=== PATIENT | male | born 1985 | race American Indian/Alaskan Native ===

== ENCOUNTER → 2016-12-22 | Outpatient (CLI) | payer BC ==
[~2016-12-22] MED LIST: CEPH500C PO; HYDR1TAB PO; IOHEXOL 350 MG/ML 150 ML (OMNIPAQUE 350) VIAL IV ONE; LISI5TAB PO; NS 100 ML (IVPB) BAG IV ONE
--- NOTE | 2016-12-22 17:02 | Diagnostic Imaging Report ---
PROCEDURE: CT angiography of the chest with contrast. TECHNIQUE: Multiple contiguous axial images were obtained through the chest after uneventful bolus administration of intravenous contrast. Reconstructed CTA MIP acquisitions were also performed. INDICATION: Followup type B dissection. 150 mL of Omnipaque 300 is administered intravenously. FINDINGS: The unenhanced phase demonstrates a stent graft along the proximal aspect of the descending aorta. This is not involving the aortic arch and origin of the great vessels. After contrast administration, the thoracic aorta opacification is normal including within the lumen of the stent and the origin of the great vessels which are all patent. There is no thoracic aortic aneurysm. The heart size is normal. No pericardial or pleural effusion. The opacification timing is optimal for the thoracic aorta and the pulmonary arteries are not well opacified. This study does not evaluate therefore for pulmonary embolism. The pulmonary trunk and main pulmonary arteries, however, appear to be patent. There is no mediastinal mass or lymphadenopathy. No significantly enlarged hilar or axillary lymph nodes seen. No enlarged mediastinal lymphadenopathy. The liver demonstrates significant degree of fatty infiltration in a diffuse fashion. The osseous structures appear grossly unremarkable. When compared to 07/13/2012, no significant change is seen. IMPRESSION: 1. Stable patent stent graft in the proximal descending aorta. No acute aortic abnormality. 2. Marked diffuse hepatic steatosis. Dictated by: Dictated on workstation # [id number]
== END ==
LOC: RAD 15:33
PROVIDERS: ATTEND Nurse Practitioner Family
DX: I71.01 Dissection of thoracic aorta (principal); K76.0 Fatty (change of) liver, not elsewhere classified
CPT/HCPCS: 71275

== ENCOUNTER → 2018-01-10 | Outpatient (CLI) | payer BC ==
[~2018-01-10] MED LIST changes: +CATHETER FLUSH 10 ML SYR IV PRN
[2018-01-10 14:47] LABS: BUN/CREATININE RATIO 15; CALCIUM 9.1 MG/DL (8.5-10.1); CARBON DIOXIDE 23 MMOL/L (21-32); CHLORIDE 105 MMOL/L (98-107); CREATININE SERUM 0.78 MG/DL (0.60-1.30); GFR ESTIMATED > 60; GLUCOSE 87 MG/DL (70-105); POTASSIUM 3.9 MMOL/L (3.6-5.0); SODIUM 138 MMOL/L (135-145)
--- NOTE | 2018-01-10 15:36 | Diagnostic Imaging Report ---
PROCEDURE: CT angiography of the chest with contrast. TECHNIQUE: Multiple contiguous axial images were obtained through the chest after uneventful bolus administration of intravenous contrast. Reconstructed CTA MIP acquisitions were also performed. INDICATION: History of thoracic aortic aneurysm. COMPARISON: 12/22/2016 FINDINGS: Stent in the proximal descending thoracic aorta originating just beyond the aortic arch is unchanged in appearance. Lumen opacifies normally without evidence of dissection or rupture. No residual aneurysm is seen. There is no evidence of pulmonary embolus. Heart size is normal. There is no pericardial effusion. There is no pneumothorax or pleural fluid. There is no adenopathy. There is a 3-4 mm noncalcified pulmonary nodule in the lateral right upper lobe seen on series 2 image 35 which is unchanged from the prior study. The lungs are otherwise clear. There is pronounced diffuse hepatic steatosis with some focal sparing about the gallbladder fossa. The portal vein enhances normally. There is no biliary dilatation. There is some cortical scarring along the visualized superior posterior right renal cortex. IMPRESSION: 1. Descending thoracic aortic stent appears unchanged and without evidence of acute complication. 2. 3-4 mm noncalcified pulmonary nodule in the lateral right upper lobe is unchanged from November 2016 and is likely benign. An additional one-year followup is suggested to confirm stability. 3. Diffuse hepatic steatosis. 4. No significant new abnormality is seen when compared to the prior exam. Dictated by: Dictated on workstation # [id number]
== END ==
LOC: RAD 14:12
PROVIDERS: ATTEND Thoracic Surgery (Cardiothoracic Vascular Surgery)
DX: R91.8 Other nonspecific abnormal finding of lung field (principal); K76.0 Fatty (change of) liver, not elsewhere classified; Z95.828 Presence of other vascular implants and grafts; Z86.79 Personal history of other diseases of the circulatory system
CPT/HCPCS: 36415; 71275; 80048

== ENCOUNTER 2019-05-30 11:37 | Emergency (ER) | payer BC ==
[~2019-05-30] VITALS: Ht 177 cm; Wt 114.0 kg
[~2019-05-30 11:37] MED LIST changes: -CATHETER FLUSH 10 ML SYR IV PRN; -IOHEXOL 350 MG/ML 150 ML (OMNIPAQUE 350) VIAL IV ONE; -NS 100 ML (IVPB) BAG IV ONE
[2019-05-30] MEDS ORDERED: NS IV 1000 ML 2,721.54 ML IV ONE (12:15)
[2019-05-30] MEDS ORDERED: ACETAMINOPHEN 500 MG TAB (TYLENOL) PO PRN (12:15)
[2019-05-30] MEDS ORDERED: RT-ALBUTEROL/IPRATROPIUM 3 ML (DUONEB) VIAL INH ONE ×2 (12:15→15:00)
[2019-05-30 12:16] LABS: BASOPHILS % (AUTO) 0 % (0-10); EOSINOPHILS % (AUTO) 0 % (0-10); HEMATOCRIT 44 % (40-54); LYMPHOCYTES # (AUTO) 1.6 X 10^3 (1.0-4.0); LYMPHOCYTES % (AUTO) 18 % (12-44); MEAN CORPUSCULAR HEMOGLOBIN 28 PG (25-34); MEAN CORPUSCULAR HGB CONC 35 G/DL (32-36); MEAN CORPUSCULAR VOLUME 82 FL (80-99); MEAN PLATELET VOLUME 8.9 FL (7.4-10.4); MONOCYTES # (AUTO) 2.1 X 10^3 (0.0-1.0); MONOCYTES % (AUTO) 24 % (0-12); NEUTROPHILS # (AUTO) 5.1 X 10^3 (1.8-7.8); NEUTROPHILS % (AUTO) 58 % (42-75); PLATELET COUNT 302 10^3/uL (130-400); RED CELL DISTRIBUTION WIDTH 13.6 % (10.0-14.5); WHITE BLOOD COUNT 8.9 10^3/uL (4.3-11.0)
[2019-05-30 12:31] LABS: PROTHROMBIN TIME PATIENT 13.4 SEC (12.2-14.7)
[2019-05-30 12:37] LABS: ALANINE AMINOTRANSFERASE 32 U/L (0-55); ALBUMIN 4.3 GM/DL (3.2-4.5); ALKALINE PHOSPHATASE 60 U/L (40-136); BILIRUBIN,TOTAL 1.1 MG/DL (0.1-1.0); BUN/CREATININE RATIO 8; CALCIUM 9.1 MG/DL (8.5-10.1); CARBON DIOXIDE 25 MMOL/L (21-32); CHLORIDE 100 MMOL/L (98-107); CREATININE SERUM 1.19 MG/DL (0.60-1.30); GFR ESTIMATED > 60; GLUCOSE 100 MG/DL (70-105); POTASSIUM 3.6 MMOL/L (3.6-5.0); SODIUM 136 MMOL/L (135-145); TOTAL PROTEIN 7.1 GM/DL (6.4-8.2)
[2019-05-30 12:59] LABS: ATYPICAL LYMPHOCYTES 1 %; BAND NEUTROPHILS 6 %; BASOPHILS % (MANUAL) 0 %; EOSINOPHILS % (MANUAL) 0 %; LYMPHOCYTES % (MANUAL) 16 %; MONOCYTES % (MANUAL) 18 %; NEUTROPHILS % (MANUAL) 59 %
--- NOTE | 2019-05-30 12:59 | Diagnostic Imaging Report ---
INDICATION: Cough and flu symptoms. Comparison is made to a prior examination of 07/26/2013. FINDINGS: The heart size, mediastinal configuration, and pulmonary vascularity are within normal limits. There is no pleural effusion, pneumothorax, or pneumonia. The osseous structures are unremarkable. IMPRESSION: No acute cardiopulmonary abnormality. Dictated by: Dictated on workstation # [id number]
[2019-05-30 13:00] LABS: RBC MORPH NORMAL
[2019-05-30 13:12] LABS: TOXIC GRANULATION/VACUOLAZATIO 1+
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
[2019-05-30] MEDS ORDERED: KETOROLAC 30 MG/ML VIAL IVP STA (13:35)
[2019-05-30] MEDS ORDERED: RT-ALBUTEROL SULF 2.5 MG/3 ML PRE-MIX VIAL INH STA (13:35)
[2019-05-30] MEDS ORDERED: cefTRIAXone FOR IV USE 1,000 MG in WATER (STERILE) FOR INJECTION 10 ML IV ONE (13:45)
[2019-05-30] MEDS ORDERED: methylPREDNISolone 125 MG (Solu-MEDROL) VIAL IVP ONE (13:45)
[2019-05-30] MEDS ORDERED: ONDANSETRON 4 MG/2 ML (SDV) Z0FRAN IVP ONE (13:45)
[2019-05-30] MEDS ORDERED: OSEL75CA15 PO ×2 (15:12→15:50)
[2019-05-30] MEDS ORDERED: ALBU2.5V4 INH ×2 (15:12→15:50)
[2019-05-30] MEDS ORDERED: PRD20T PO ×2 (15:12→15:50)
[2019-05-30 15:28] LABS: BILIRUBIN,URINE NEGATIVE (NEGATIVE); CLARITY,URINE CLEAR; COLOR,URINE YELLOW; GLUCOSE, URINE (UA) NEGATIVE (NEGATIVE); KETONES,URINE NEGATIVE (NEGATIVE); LEUKOCYTE ESTERASE ,URINE NEGATIVE (NEGATIVE); NITRITE,URINE NEGATIVE (NEGATIVE); PH,URINE 6 (5-9); PROTEIN,URINE NEGATIVE (NEGATIVE)
[2019-05-30 15:41] LABS: BACTERIA,URINE TRACE /HPF; RBC,URINE 0 /HPF; WBC,URINE 0 /HPF
[2019-05-30] MEDS ORDERED: ONDA8TAB13 PO (15:50)
[2019-05-30] MEDS ORDERED: LISI10TA2 PO (15:50)
[2019-05-30] MEDS ORDERED: PARO20TA5 PO (15:50)
[2019-05-30 16:06] VITALS: BP 125/69
== END 2019-05-30 16:05 | disposition home or self-care (01) ==
LOC: EDUNIT# 11:37 → ER 11:38
DX: J20.9 Acute bronchitis, unspecified (principal); J11.1 Influenza due to unidentified influenza virus with other respiratory manifestations
CPT/HCPCS: 36415; 71045; 80053; 81000; 83605; 85007; 85027; 85610; 85730; 87040; 87088; 87804; 94640

== ENCOUNTER → 2020-10-18 | Outpatient (CLI) | payer BC ==
[~2020-10-18] MED LIST changes: +ALBU2.5V4 INH; +LISI10TA25 PO; +ONDA8TAB13 PO; +OSEL75CA15 PO; +PARO20TA5 PO; +PRD20T PO
--- NOTE | 2020-10-18 10:15 | Diagnostic Imaging Report ---
INDICATION: Right shoulder pain chronic in nature. 3 views. Glenohumeral joints in good alignment. Articulating surfaces are smooth. Joint spaces well-maintained. AC joint shows good alignment without hypertrophic change. There are no fractures. No soft tissue calcification in the right shoulder. IMPRESSION: Normal right shoulder. Dictated by: Dictated on workstation # [id number]
== END ==
LOC: RAD 09:43
PROVIDERS: ATTEND Physician Assistant
DX: M25.511 Pain in right shoulder (principal)
CPT/HCPCS: 73030

== ENCOUNTER → 2020-10-31 | Outpatient (CLI) | payer BC ==
--- NOTE | 2020-10-31 11:32 | Diagnostic Imaging Report ---
PROCEDURE: MRI right joint upper extremity without contrast. TECHNIQUE: Multiplanar, multisequence non contrast-enhanced MRI of the right upper extremity was accomplished. INDICATION: Right shoulder pain. COMPARISON: 10/18/2020 FINDINGS: No acute fracture or dislocation is seen in the right shoulder. Alignment appears normal. No joint effusion is seen. There is moderate bone marrow edema in the distal clavicle which is asymmetric to the acromion. There does appear to be mild degenerative change in the acromioclavicular joint. The supraspinatus and infraspinatus tendons appear intact. The teres minor tendon appears intact. The subscapularis tendon is intact. No muscular atrophy is seen. The long head of the biceps tendon appears normal in course and signal. The glenoid labrum is suboptimally evaluated in the absence of intra-articular contrast. There does appear to be tearing at the anterior inferior labrum and possibly at the superior labrum as well. No paralabral cyst is seen. The acromion has a curved undersurface without hooking. The coracoclavicular and coracoacromial ligaments appear intact. Soft tissues about the right shoulder demonstrate no acute abnormality. IMPRESSION: 1. No rotator cuff tear is seen in the right shoulder. 2. Likely tearing of the right glenoid labrum. No paralabral cyst is seen. 3. Asymmetric bone marrow edema in the distal right clavicle, can be seen with osteolysis. Dictated by: Dictated on workstation # [id number]
== END ==
LOC: RAD 08:00
PROVIDERS: ATTEND Physician Assistant
DX: M25.511 Pain in right shoulder (principal); M79.89 Other specified soft tissue disorders
CPT/HCPCS: 73221

== ENCOUNTER 2021-05-26 01:31 | Inpatient (IN) | payer BC ==
[~2021-05-26] VITALS: Ht 187 cm; Wt 119.0 kg
[2021-05-26] MEDS ORDERED: ASPIRIN 81 MG CHEW (CHILDREN'S ASA) PO ONE (01:45)
[2021-05-26 01:46] LABS: BASOPHILS % (AUTO) 0 % (0-10); EOSINOPHILS # (AUTO) 0.1 10^3/uL (0.0-0.3); EOSINOPHILS % (AUTO) 0 % (0-10); HEMATOCRIT 50 % (40-54); HEMOGLOBIN 16.1 g/dL (13.3-17.7); LYMPHOCYTES # (AUTO) 6.8 10^3/uL (1.0-4.0); LYMPHOCYTES % (AUTO) 56 % (12-44); MEAN CORPUSCULAR HEMOGLOBIN 28 pg (25-34); MEAN CORPUSCULAR HGB CONC 33 g/dL (32-36); MEAN CORPUSCULAR VOLUME 87 fL (80-99); MEAN PLATELET VOLUME 9.4 fL (9.0-12.2); MONOCYTES # (AUTO) 0.6 10^3/uL (0.0-1.0); MONOCYTES % (AUTO) 5 % (0-12); NEUTROPHILS # (AUTO) 4.5 10^3/uL (1.8-7.8); NEUTROPHILS % (AUTO) 37 % (42-75); PLATELET COUNT 382 10^3/uL (130-400); WHITE BLOOD COUNT 12.1 10^3/uL (4.3-11.0)
[2021-05-26 01:53] LABS: ALBUMIN 3.8 GM/DL (3.2-4.5); POTASSIUM 3.1 MMOL/L (3.6-5.0)
[2021-05-26 01:55] LABS: CALCIUM 8.7 MG/DL (8.5-10.1)
[2021-05-26 01:56] LABS: TOTAL PROTEIN 6.5 GM/DL (6.4-8.2)
[2021-05-26 01:58] LABS: BILIRUBIN,TOTAL 0.4 MG/DL (0.1-1.0)
[2021-05-26 01:59] LABS: CREATININE SERUM 1.3 MG/DL (0.60-1.30)
[2021-05-26] MEDS ORDERED: LACTATED RINGERS 1,000 ML IV ONE ×2 (02:00→05:04)
[2021-05-26 02:02] LABS: MAGNESIUM 2.2 MG/DL (1.6-2.4)
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
[2021-05-26] MEDS ORDERED: inSUlin (REGULAR) HUMAN 1 UNIT/0.01 ML (CHARGE PER UNIT) SC ONE (02:15)
[2021-05-26 02:17] LABS: ABG BASE EXCESS -5.9 MMOL/L (-2.5-2.5); ABG OXYGEN SATURATION 95 % (94-100); ABG PCO2 37 MMHG (35-45); ABG PO2 75 MMHG (79-93); ABG TCO2 20.7 MMOL/L (21.0-31.0)
[2021-05-26 02:18] LABS: ALLENS TEST YES-POS
[2021-05-26 02:19] LABS: INSPIRED O2 6L; PATIENT TEMP 34.7; VENTILATOR NO
[2021-05-26 02:21] LABS: ABG PH 7.33 (7.37-7.43)
[2021-05-26] MEDS ORDERED: morphine INJ 10 MG/ML 1ML (SYR OR VIAL) ONE (03:21)
[2021-05-26] MEDS ORDERED: morphine INJ 10 MG/ML 1ML (SYR OR VIAL) IVP STA (03:21)
[2021-05-26 03:56] LABS: BILIRUBIN,URINE NEGATIVE (NEGATIVE); CLARITY,URINE CLEAR; COLOR,URINE YELLOW; GLUCOSE, URINE (UA) TRACE (NEGATIVE); KETONES,URINE NEGATIVE (NEGATIVE); LEUKOCYTE ESTERASE ,URINE NEGATIVE (NEGATIVE); NITRITE,URINE NEGATIVE (NEGATIVE); PH,URINE 6.5 (5-9); PROTEIN,URINE NEGATIVE (NEGATIVE)
[2021-05-26 04:03] LABS: BACTERIA,URINE NEGATIVE /HPF; SQUAMOUS EPITHELIAL CELL,UR RARE /HPF
[2021-05-26 04:06] LABS: AMPHETAMINE SCREEN, URINE NEGATIVE (NEGATIVE); BENZODIAZEPINES SCREEN URINE NEGATIVE (NEGATIVE); CANNABINOID SCREEN, URINE NEGATIVE (NEGATIVE); COCAINE SCREEN URINE NEGATIVE (NEGATIVE); METHAMPHETAMINE SCREEN URINE S NEGATIVE (NEGATIVE)
[2021-05-26 04:07] LABS: BARBITURATE SCREEN URINE NEGATIVE (NEGATIVE); METHADONE STAT NEGATIVE (NEGATIVE); OPIATE SCREEN URINE POSITIVE (NEGATIVE); OXYCODONE STAT NEGATIVE (NEGATIVE); PROPOXYPHENE STAT NEGATIVE (NEGATIVE); TRICYCLIC ANTIDEPRESSANTS SCRE NEGATIVE (NEGATIVE)
[2021-05-26] MEDS ORDERED: NITROGLYCERIN 0.4 MG SL TABS BTL 25'S SL PRN (05:15)
[2021-05-26] MEDS: ONDANSETRON 4 MG/2 ML (SDV) Z0FRAN IV PRN (05:25)
[2021-05-26] MEDS: LACTATED RINGERS 1,000 ML IV SCH ×3 (05:26→22:53)
[2021-05-26] MEDS: MAGNESIUM 1 GM/100 ML IVPB 100 ML IV SCH (05:54)
[2021-05-26] MEDS: POTASSIUM CL 10MEQ/50ML IVPB 50 ML IV SCH ×5 (05:54→11:59)
[2021-05-26] MEDS: KCL 20 MEQ TAB (K-DUR) PO SCH (05:55)
[2021-05-26] MEDS ORDERED: ENOXAPARIN 300 MG/3 ML (LOVENOX) MULTI-DOSE VIAL SQ SCH (06:00)
--- NOTE | 2021-05-26 06:33 | Diagnostic Imaging Report ---
PROCEDURE: CT angiography of the chest with contrast and CT abdomen and pelvis with contrast. TECHNIQUE: Multiple contiguous axial images were obtained through the chest, abdomen and pelvis after administration of intravenous contrast. 3D MIP reconstructed CT angiography acquisitions of the aorta were then performed. Auto Exposure Controls were utilized during the CT exam to meet ALARA standards for radiation dose reduction. INDICATION: Aortic injury and recent code. CTA CHEST: There is good opacification of thoracic aorta and pulmonary arteries. No pulmonary arterial filling defect is identified. Thoracic aorta is of normal caliber with stent graft present in the proximal descending thoracic aorta. There is no evidence of stenosis. Lungs are clear. There is no significant pleural or pericardial fluid. No lung mass or infiltrate is seen. CTA abdomen and pelvis: Abdominal aorta is of normal caliber. The visceral branches are also patent without evidence of abnormality. There is no retroperitoneal hematoma. There is diffuse low-density in the liver indicating steatosis. No focal hepatic lesion is identified. There is artifact which limits evaluation of the spleen with questionable low-density in the subcapsular aspect of the posterior spleen. This is of doubtful significance. No pancreatic, gallbladder or adrenal gland abnormality is identified. There is mild heterogeneous enhancement throughout the kidneys bilaterally. Moderate amount of stool and fluid is seen throughout the colon. There is no organized fluid collection. Unopacified urinary bladder is unremarkable. There is bilateral L5 spondylolysis with grade 1 spondylolisthesis. IMPRESSION: No definite acute abnormality is identified. Note is made of hepatic steatosis and diffuse fluid throughout the colon which may be related to diarrheal state. Heterogeneous enhancement of the kidneys can be related to renal infection and correlation with urinalysis would be of value. Dictated by: Dictated on workstation # [id number]
--- NOTE | 2021-05-26 06:47 | Diagnostic Imaging Report ---
PROCEDURE: CT head and CT cervical spine without contrast. TECHNIQUE: Multiple contiguous axial images were obtained through the brain and cervical spine without the use of intravenous contrast. Sagittal and coronal reformations through the cervical spine were then performed. Auto Exposure Controls were utilized during the CT exam to meet ALARA standards for radiation dose reduction. INDICATION: Trauma CT HEAD: Ventricles and sulci are within normal limits for size. No hemorrhage is identified on the contrast-enhanced exam. There is no abnormal mass effect or shift of midline structures. Calvarium is intact and visualized paranasal sinuses are clear. No abnormal enhancing lesion is identified. IMPRESSION: No acute abnormality is detected. CT CERVICAL SPINE: Multiple contiguous axial CT images of the cervical spine were obtained with sagittal and coronal reformatted images produced. FINDINGS: There is loss of normal cervical lordosis. Vertebral body heights and disc spaces are maintained. Prevertebral soft tissues are unremarkable, and there is no evidence of paraspinous hematoma. IMPRESSION: Loss of normal cervical lordosis which may be due to positioning or muscle spasm. There is, otherwise, no CT evidence of acute cervical spinal abnormality. Dictated by: Dictated on workstation # [id number]
--- NOTE | 2021-05-26 07:10 | Diagnostic Imaging Report ---
Indication: Chest pain AP view of chest is obtained with comparison made to study of 05/30/2019 FINDINGS: Heart size and pulmonary vascularity are within normal limits, and the lungs are clear, bilaterally. Aortic stent graft is stable in appearance. IMPRESSION: Unremarkable chest. Dictated by: Dictated on workstation # [id number]
[2021-05-26 07:58] LABS: BASOPHILS % (AUTO) 0 % (0-10); EOSINOPHILS % (AUTO) 0 % (0-10); HEMATOCRIT 48 % (40-54); HEMOGLOBIN 16.1 g/dL (13.3-17.7); LYMPHOCYTES # (AUTO) 0.6 10^3/uL (1.0-4.0); LYMPHOCYTES % (AUTO) 4 % (12-44); MEAN CORPUSCULAR HEMOGLOBIN 29 pg (25-34); MEAN CORPUSCULAR HGB CONC 34 g/dL (32-36); MEAN CORPUSCULAR VOLUME 85 fL (80-99); MEAN PLATELET VOLUME 9.4 fL (9.0-12.2); MONOCYTES # (AUTO) 1.5 10^3/uL (0.0-1.0); MONOCYTES % (AUTO) 8 % (0-12); NEUTROPHILS # (AUTO) 16.2 10^3/uL (1.8-7.8); NEUTROPHILS % (AUTO) 88 % (42-75); PLATELET COUNT 340 10^3/uL (130-400); WHITE BLOOD COUNT 18.4 10^3/uL (4.3-11.0)
[2021-05-26 08:20] LABS: CREATININE SERUM 0.99 MG/DL (0.60-1.30)
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
[2021-05-26] MEDS: ASPIRIN E.C. 81 MG (ECOTRIN) TAB PO SCH (08:42)
[2021-05-26 08:45] LABS: BAND NEUTROPHILS 3 %; BASOPHILS % (MANUAL) 0 %; EOSINOPHILS % (MANUAL) 0 %; LYMPHOCYTES % (MANUAL) 2 %; MONOCYTES % (MANUAL) 9 %; NEUTROPHILS % (MANUAL) 86 %
[2021-05-26 08:46] LABS: RBC MORPH NORMAL
[2021-05-26] MEDS ORDERED: ESOM20CA58 PO (10:14)
[2021-05-26] MEDS ORDERED: PARO20TA5 PO (10:14)
[2021-05-26] MEDS ORDERED: LISI10TA25 PO (10:14)
[2021-05-26] MEDS ORDERED: ASPI325T32 PO (10:14)
[2021-05-26] MEDS: morphine INJ 4 MG/ML 1 ML (VIAL/SYRINGE) IV PRN ×2 (14:49→22:53)
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
[2021-05-27] MEDS: morphine INJ 4 MG/ML 1 ML (VIAL/SYRINGE) IV PRN ×2 (02:24→06:56)
[2021-05-27 04:57] LABS: BASOPHILS # (AUTO) 0.1 10^3/uL (0.0-0.1); BASOPHILS % (AUTO) 1 % (0-10); EOSINOPHILS # (AUTO) 0.2 10^3/uL (0.0-0.3); EOSINOPHILS % (AUTO) 2 % (0-10); HEMATOCRIT 44 % (40-54); HEMOGLOBIN 14.5 g/dL (13.3-17.7); LYMPHOCYTES # (AUTO) 2.4 10^3/uL (1.0-4.0); LYMPHOCYTES % (AUTO) 25 % (12-44); MEAN CORPUSCULAR HEMOGLOBIN 28 pg (25-34); MEAN CORPUSCULAR HGB CONC 33 g/dL (32-36); MEAN CORPUSCULAR VOLUME 86 fL (80-99); MEAN PLATELET VOLUME 9.3 fL (9.0-12.2); MONOCYTES # (AUTO) 1.1 10^3/uL (0.0-1.0); MONOCYTES % (AUTO) 11 % (0-12); NEUTROPHILS # (AUTO) 5.8 10^3/uL (1.8-7.8); NEUTROPHILS % (AUTO) 61 % (42-75); PLATELET COUNT 285 10^3/uL (130-400); WHITE BLOOD COUNT 9.5 10^3/uL (4.3-11.0)
[2021-05-27 05:20] LABS: ALBUMIN 3.7 GM/DL (3.2-4.5); BILIRUBIN,TOTAL 0.7 MG/DL (0.1-1.0); CALCIUM 8.6 MG/DL (8.5-10.1); CREATININE SERUM 0.84 MG/DL (0.60-1.30); MAGNESIUM 1.9 MG/DL (1.6-2.4); PHOSPHORUS 3.9 MG/DL (2.3-4.7); POTASSIUM 4.2 MMOL/L (3.6-5.0); TOTAL PROTEIN 6.2 GM/DL (6.4-8.2)
[2021-05-27 05:21] LABS: CHOLESTEROL 191 MG/DL (< 200); HDL CHOLESTEROL 43 MG/DL (40-60); TRIGLYCERIDES 273 MG/DL (<150); VLDL CHOLESTEROL 55 MG/DL (5-40)
[2021-05-27] MEDS: MAGNESIUM 1 GM/100 ML IVPB 100 ML IV SCH (05:49)
[2021-05-27] MEDS: POTASSIUM CL 10MEQ/50ML IVPB 50 ML IV SCH (05:49)
[2021-05-27] MEDS: KCL 20 MEQ TAB (K-DUR) PO SCH (05:50)
[2021-05-27] MEDS: ASPIRIN E.C. 81 MG (ECOTRIN) TAB PO SCH (08:05)
[2021-05-27] MEDS: guaiFENesin (MUCINEX) 600 MG TAB PO PRN ×2 (08:34→21:59)
[2021-05-27] MEDS: LACTATED RINGERS 1,000 ML IV SCH ×2 (08:37→21:01)
--- NOTE | 2021-05-27 08:57 | Cardiology Progress Note ---
Progress Note-Cardiology Events since last exam Date Seen by Provider: May 27, 2021 Time Seen by Provider: 08:57 Events since last exam I am following him for possible cardiac arrest and elevated troponin level. His oxygen saturations dipped last evening and he was placed on oxygen. He is now back on room air. His is at the bedside. She states that he does snore at times. He has never been diagnosed with sleep apnea or had a sleep study. He denies chest discomfort, dyspnea, palpitations, syncope, or ankle edema. Certain portions of this document may have been dictated utilizing voice recognition technology. Inherent to this technology, typographical and grammatical errors may exist. As much as I am diligent to identify and correct these mistakes, some errors may remain in the document. Vitals Last set of Vitals Signs Vital Signs 05/27/21 05/27/21 05/27/21 05/27/21 10:15 12:25 13:50 14:45 Temp 36.4 Pulse 71 Resp 12 B/P (MAP) 141/87 Pulse Ox 97 O2 Delivery Room Air O2 Flow Rate 2.00 Labs Labs Laboratory Tests 05/27/21 04:35 Exam Vital Signs Vital Signs Date Time Temp Pulse Resp B/P (MAP) Pulse Ox O2 Delivery O2 Flow Rate FiO2 05/27/21 14:45 12 141/87 97 05/27/21 13:50 71 05/27/21 13:50 36.4 05/27/21 12:25 Room Air 05/27/21 10:15 2.00 Physical Exam General: Alert. No acute distress. Eye: No xanthelasma. HENT: Normocephalic. Neck: Jugular venous pressure does not appear elevated. Respiratory: Lungs are clear to auscultation. Respirations are non-labored. Breath sounds are equal. Symmetrical chest wall expansion. Cardiovascular: Normal rate. Regular rhythm. No murmur. No gallop. No edema. Gastrointestinal: Soft. Normal bowel sounds. Skin: Warm. Dry. Neurologic: Alert and oriented to person, place, time. Cranial nerves 3-11 grossly intact. Psychiatric: Cooperative. Appropriate mood & affect. Labs Laboratory Tests Test 05/26/21 18:26 05/27/21 04:35 05/27/21 10:33 05/27/21 15:58 Range/Units Glucometer 89 84 70-110 MG/DL White Blood Count 9.5 4.3-11.0 10^3/uL Red Blood Count 5.16 4.30-5.52 10^6/uL Hemoglobin 14.5 13.3-17.7 g/dL Hematocrit 44 40-54 % Mean Corpuscular Volume 86 80-99 fL Mean Corpuscular Hemoglobin 28 25-34 pg Mean Corpuscular Hemoglobin Concent 33 32-36 g/dL Red Cell Distribution Width 13.3 10.0-14.5 % Platelet Count 285 130-400 10^3/uL Mean Platelet Volume 9.3 9.0-12.2 fL Immature Granulocyte % (Auto) 0 % Neutrophils (%) (Auto) 61 42-75 % Lymphocytes (%) (Auto) 25 12-44 % Monocytes (%) (Auto) 11 0-12 % Eosinophils (%) (Auto) 2 0-10 % Basophils (%) (Auto) 1 0-10 % Neutrophils # (Auto) 5.8 1.8-7.8 10^3/uL Lymphocytes # (Auto) 2.4 1.0-4.0 10^3/uL Monocytes # (Auto) 1.1 H 0.0-1.0 10^3/uL Eosinophils # (Auto) 0.2 0.0-0.3 10^3/uL Basophils # (Auto) 0.1 0.0-0.1 10^3/uL Immature Granulocyte # (Auto) 0.0 0.0-0.1 10^3/uL Sodium Level 139 135-145 MMOL/L Potassium Level 4.2 3.6-5.0 MMOL/L Chloride Level 104 98-107 MMOL/L Carbon Dioxide Level 23 21-32 MMOL/L Anion Gap 12 5-14 MMOL/L Blood Urea Nitrogen 13 7-18 MG/DL Creatinine 0.84 0.60-1.30 MG/DL Estimat Glomerular Filtration Rate 105 BUN/Creatinine Ratio 15 Glucose Level 94 70-105 MG/DL Calcium Level 8.6 8.5-10.1 MG/DL Corrected Calcium 8.8 8.5-10.1 MG/DL Phosphorus Level 3.9 2.3-4.7 MG/DL Magnesium Level 1.9 1.6-2.4 MG/DL Total Bilirubin 0.7 0.1-1.0 MG/DL Aspartate Amino Transf (AST/SGOT) 19 5-34 U/L Alanine Aminotransferase (ALT/SGPT) 35 0-55 U/L Alkaline Phosphatase 41 40-136 U/L Total Protein 6.2 L 6.4-8.2 GM/DL Albumin 3.7 3.2-4.5 GM/DL Triglycerides Level 273 H <150 MG/DL Cholesterol Level 191 < 200 MG/DL LDL Cholesterol Direct 115 1-129 MG/DL VLDL Cholesterol 55 H 5-40 MG/DL HDL Cholesterol 43 40-60 MG/DL Radiology TREADMILL NUCLEAR STRESS TEST (05/27/2021): 1. Normal heart rate and blood pressure response to exercise. 2. There was no chest discomfort, arrhythmias, or electrocardiogram changes during the test. 3. The patient exhibited excellent exercise capacity for age at 10 minutes and 25 seconds of the Jac protocol. 4. There was normal myocardial perfusion in all segments without evidence of infarction or ischemia. 5. There was normal wall motion in all segments with a calculated ejection fraction of 68%. Diagnosis/Problems Diagnosis/Problems (1) Cardiac arrest Status: Acute Assessment & Plan: Exact etiology unclear. There is no evidence of Hejip-Aojawcvze-Qyivf, Brugada syndrome, or prolonged or short QT on his resting electrocardiogram. There were not any reported significant bradycardia arrhythmias or tachyarrhythmias by the rescue squad. He did have mild bradycardia last night but this was while he was sleeping. His nuclear stress test from earlier today was normal. He has a normal ejection fraction. There is no evidence of disruption of his thoracic aortic stent graft on his chest CT. This may have been brought on by an arrhythmia or alternatively, he could have had a seizure. When faced with these sorts of circumstances, sometimes we may not ever find the cause of the event. I did explain this to the patient and his . Nonetheless, we will certainly search for an explanation of this event so we can decrease the risk of any recurrent events. As such, once he is discharged home, I will plan on a 30-day event monitor. I will have my nurse make a referral for a neurology consultation following discharge. I asked the patient and his to check with their insurance to find a neurology provider who is covered by their insurance. We do not have this service at our hospital at this point in time. I do not see any reason that he cannot return to work or drive a vehicle. From a cardiac standpoint, he can be discharged home today. (2) Abnormal ECG Assessment & Plan: There is no evidence of a STEMI or any definitive ischemic changes on his electrocardiogram. He has nonspecific ST changes. As above, his stress test was normal. As such, no additional cardiac testing is indicated for this mild abnormality at this point in time. (3) Sinus bradycardia Assessment & Plan: This occurred at night while he was sleeping. I suspect he may have sleep apnea. Sleep apnea could have also contributed to some of the symptoms that happened just before he collapsed. I will have my nurse order a home sleep study after he is discharged. (4) Troponin level elevated Assessment & Plan: His troponin level was elevated but this is in the setting of possible cardiac arrest as outlined above. If he did in fact have cardiac arrest, this most likely would have led to global myocardial ischemia resulting in a troponin leak consistent with a type II non-ST elevation myocardial infarction. As above, his nuclear stress test was normal suggesting that he has not had a focal myocardial infarction or significant coronary atherosclerosis. (5) Primary hypertension Assessment & Plan: Blood pressures are improved now that his outpatient dose of lisinopril has been restarted. This will need to be monitored after discharge. (6) Obesity Assessment & Plan: He needs to work on weight loss. Obesity does also increase his risk of having sleep apnea. BENSON MCKEON JR, MD May 27, 2021 08:57
[2021-05-27] MEDS ORDERED: ENOXAPARIN 300 MG/3 ML (LOVENOX) MULTI-DOSE VIAL SQ SCH (09:00)
[2021-05-27] MEDS ORDERED: ENOXAPARIN 40 MG/0.4 ML (LOVENOX) SYR SC SCH (09:00)
[2021-05-27] MEDS ORDERED: lisINopril 10 MG (PRINIVIL) TABLET PO SCH (09:00)
[2021-05-27] MEDS ORDERED: PANTOPRAZOLE 40 MG (PROTONIX) TAB PO SCH (09:00)
[2021-05-27] MEDS ORDERED: GADOTERATE 0.5 MMOL/ML (CLARISCAN) 15 ML VIAL IV ONE (11:15)
[2021-05-27] MEDS ORDERED: CATHETER FLUSH 10 ML SYR IV PRN (11:15)
[2021-05-27] MEDS ORDERED: GADOTERATE 0.5 MMOL/ML (CLARISCAN) 20 ML VIAL IV ONE (11:15)
--- NOTE | 2021-05-27 11:43 | Diagnostic Imaging Report ---
Clinical indication: Patient collapsed at home. Patient also having a stress test today. Exam: MRI of the brain performed without and with 24 cc of Clariscan IV contrast. Sequences include axial DWI, ADC map, axial gradient echo, axial T2, axial FLAIR, axial T1, axial T1 post IV contrast, coronal T1 fat-sat post IV contrast, and sagittal T1 post IV contrast. Comparison: CT scan of the head and cervical spine without contrast dated 05/26/2021. Findings: There is no evidence of acute cerebral infarct, intracranial hemorrhage, or gross mass effect. There is no abnormal IV contrast enhancement. The brain parenchymal volume appears appropriate for patient's age. There is normal trevizo-white matter distinction. There is no significant midline shift or herniation. The [place] vascular structures show no gross abnormality as visualized. The pituitary gland, sella, and suprasellar regions are unremarkable as visualized. There is no evidence of hydrocephalus. The basal cisterns are unremarkable. The skull, extracranial soft tissue, and orbits are unremarkable. There is minimal mucosal thickening involving the left maxillary sinus. Temporal bones show no significant abnormality. IMPRESSION: Minimal left maxillary sinus disease. Otherwise unremarkable MRI of the brain. Dictated by: Dictated on workstation # [id number]
[2021-05-27 12:25] VITALS: BP 159/108
--- NOTE | 2021-05-27 12:30 | Progress Note - Hospitalist ---
Subjective HPI/CC On Admission Date Seen by Provider: May 27, 2021 Time Seen by Provider: 07:45 Patient is a 35-year-old male with past medical history of hypertension who presented to the emergency department due to cardiac arrest. He reports feeling well yesterday and going to bed in normal health. His states that he woke up to go to the bathroom and was stumbling around his feet been drinking. He had not been drinking and does not routinely drink. He then collapsed and hit his head on the bathtub. noticed irregular respirations and thought he did not have a pulse so started CPR. She states she did maybe for 5 compressions and then stopped to see if she needed to do [id number] but he was breathing. EMS arrived and noticed that he was trevizo and ashen with sats in the 60s. He had a pulse the entire time so did not receive further compressions or any defibrillation. Arrival to the ER he was on a nonrebreather and was able to titrated down to NC. He was alert and oriented and was admitted to the ICU for further monitoring. This morning he states that he is sore all over and "feels like he ." No other specific complaints. Subjective/Events-last exam Pt reports doing ok today but sore on his chest and chin where he hit the tub when he collapsed. Discussed plan for MRI and stress test today. Objective Exam Vital Signs Vital Signs Date Time Temp Pulse Resp B/P (MAP) Pulse Ox O2 Delivery O2 Flow Rate FiO2 05/27/21 10:15 74 20 134/91 94 Nasal Cannula 2.00 05/27/21 07:56 35.4 Capillary Refill : Less Than 3 Seconds General Appearance: No Apparent Distress, WD/WN Respiratory: Lungs Clear, No Respiratory Distress Cardiovascular: Regular Rate, Rhythm, No Murmur Neurologic/Psychiatric: Alert, Oriented x3 Results/Procedures Lab Laboratory Tests 05/27/21 04:35 Patient resulted labs reviewed. Imaging: Reviewed Imaging Report Assessment/Plan Assessment and Plan Assess & Plan/Chief Complaint Cardiac arrest History consistent with likely ventricular arrhythmia Monitor on telemetry- no further episodes Cardiology consulted, appreciate recs Echo with normal EF and no valvular abnormalities Records requested from Dr Jem Hassan regarding stent I called and updated Dr Parish's office as well, scheduled follow up for 06/06 at 940AM with his office and clouded images to them for review troponin up to 1.3 yesterday AM and trended down to 0.6 yesterday PM EKG from presentation with trop elevation shows sinus rhythm with borderline st depression and QTc of 476 Stress test today MRI brain today per Dr Saenz HTN BP well controlled, trend leukocytosis likely reactive, trend Resolved Hyperglycemia Resolved DVT ppx: Lovenox Diagnosis/Problems Diagnosis/Problems (1) Essential (primary) hypertension (2) Hyperglycemia (3) Acute coronary syndrome without high troponin Status: Acute (4) Cardiac arrest Status: Acute GALEN GERMAN MD May 27, 2021 12:30
--- NOTE | 2021-05-27 12:32 | Discharge Inst-Simple/Standard ---
Discharge Inst-Standard Patient Instructions/Follow Up Plan of Care/Instructions/FU: Please continue to take your medications as written. Please follow up with Leana Cruz this week and with Dr Parish next week to follow up this hospital stay. Activity as Tolerated: Yes Discharge Diet: No Restrictions Return to The Hospital For: Chest pain, palpitations, shortness of breath, passing out, weakness, if you feel you are getting worse. GALEN GERMAN MD May 27, 2021 12:32
[2021-05-27] MEDS: HYDROcodone/APAP 5 MG/325 MG (LORTAB) TAB PO PRN ×2 (13:44→22:00)
--- NOTE | 2021-05-27 15:29 | NUCLEAR STRESS TEST ---
TREADMILL NUCLEAR STRESS TEST Date of procedure: 05/27/2021. Primary care provider: Holley oCburn APRN. Admitting physician: Jean Claude Saenz Jr., MD. INDICATION: Abnormal troponin level. BASELINE ELECTROCARDIOGRAM: Sinus bradycardia at 57 bpm with early repolarization. STRESS TEST PROCEDURE: The patient was exercised for a total of 10 minutes and 25 seconds of the standard Jac protocol achieving a maximum MET level of 12.1. The resting heart rate was 57 bpm and the peak heart rate was 171 bpm, which represents 91% of the maximum predicted heart rate. The resting blood pressure was 153/100 mmHg and the peak blood pressure was 186/108 mmHg. This represents a normal heart rate and a normal blood pressure response to exercise. The test was stopped due to target heart rate attained. There was no chest discomfort during the test. There were no arrhythmias during the test. There were no significant stress induced electrocardiogram changes. The patient exhibited excellent exercise capacity for age. NUCLEAR PROCEDURE: The patient was administered 10.3 mCi of intravenous technetium 99m Tetrofosmin at rest for the rest images. The patient was subsequently administered 31 mCi of intravenous technetium 99 M Tetrofosmin at peak stress for the stress images. Following an appropriate wait after each injection, imaging was obtained. The images were subsequently processed and reformatted in the usual views. Gated imaging was obtained. The image quality was adequate with a mild degree of gastrointestinal attenuation artifact. CT attenuation correction was used as a adjunct to standard imaging. Both the corrected and uncorrected images were reviewed for interpretation. NUCLEAR RESULTS: There was normal myocardial perfusion in all segments without evidence of infarction or ischemia. There was normal left ventricular chamber size with an end-diastolic volume of 70 mL and an end-systolic volume of 22 mL. There was no evidence of transient ischemic dilatation. The TID ratio was 0.92. There was normal wall motion in all segments with a calculated ejection fraction of 68%. IMPRESSION: 1. Normal heart rate and blood pressure response to exercise. 2. There was no chest discomfort, arrhythmias, or electrocardiogram changes during the test. 3. The patient exhibited excellent exercise capacity for age at 10 minutes and 25 seconds of the Jac protocol. 4. There was normal myocardial perfusion in all segments without evidence of infarction or ischemia. 5. There was normal wall motion in all segments with a calculated ejection fraction of 68%. Certain portions of this document may have been dictated utilizing voice recognition technology. Inherent to this technology, typographical and grammatical errors may exist. As much as I am diligent to identify and correct these mistakes, some errors may remain in the document. JEAN CLAUDE SAENZ JR, MD May 27, 2021 15:29
[2021-05-27 16:10] VITALS: BP 138/87
[2021-05-27] MEDS: ONDANSETRON 4 MG/2 ML (SDV) Z0FRAN IV PRN (18:19)
[2021-05-28 04:49] LABS: BASOPHILS # (AUTO) 0.1 10^3/uL (0.0-0.1); BASOPHILS % (AUTO) 1 % (0-10); EOSINOPHILS # (AUTO) 0.2 10^3/uL (0.0-0.3); EOSINOPHILS % (AUTO) 2 % (0-10); HEMATOCRIT 44 % (40-54); HEMOGLOBIN 14.7 g/dL (13.3-17.7); LYMPHOCYTES # (AUTO) 2.2 10^3/uL (1.0-4.0); LYMPHOCYTES % (AUTO) 31 % (12-44); MEAN CORPUSCULAR HEMOGLOBIN 28 pg (25-34); MEAN CORPUSCULAR HGB CONC 33 g/dL (32-36); MEAN CORPUSCULAR VOLUME 85 fL (80-99); MEAN PLATELET VOLUME 9.1 fL (9.0-12.2); MONOCYTES # (AUTO) 0.9 10^3/uL (0.0-1.0); MONOCYTES % (AUTO) 12 % (0-12); NEUTROPHILS % (AUTO) 55 % (42-75); PLATELET COUNT 292 10^3/uL (130-400); WHITE BLOOD COUNT 7.3 10^3/uL (4.3-11.0)
[2021-05-28 05:14] LABS: ALBUMIN 3.8 GM/DL (3.2-4.5); BILIRUBIN,TOTAL 0.7 MG/DL (0.1-1.0); CREATININE SERUM 0.87 MG/DL (0.60-1.30); MAGNESIUM 2.1 MG/DL (1.6-2.4); PHOSPHORUS 4.5 MG/DL (2.3-4.7); POTASSIUM 3.8 MMOL/L (3.6-5.0); TOTAL PROTEIN 6.5 GM/DL (6.4-8.2)
[2021-05-28] MEDS: MAGNESIUM 1 GM/100 ML IVPB 100 ML IV SCH (05:17)
[2021-05-28] MEDS: KCL 20 MEQ TAB (K-DUR) PO SCH (05:17)
[2021-05-28] MEDS: POTASSIUM CL 10MEQ/50ML IVPB 50 ML IV SCH (05:17)
[2021-05-28] MEDS ORDERED: LIDOCAINE 1% INJ 20 ML 20 ML VIAL ONE (08:32)
--- NOTE | 2021-05-28 08:38 | Cardiology Progress Note ---
Progress Note-Cardiology Events since last exam Date Seen by Provider: May 28, 2021 Time Seen by Provider: 08:33 Events since last exam I am following him due to possible out of hospital cardiac arrest. His chest is a little sore from CPR and an abrasion that occurred when he fell. He denies dyspnea, palpitations, syncope, or ankle edema. Certain portions of this document may have been dictated utilizing voice recognition technology. Inherent to this technology, typographical and grammatical errors may exist. As much as I am diligent to identify and correct these mistakes, some errors may remain in the document. Vitals Last set of Vitals Signs Vital Signs 05/28/21 05/28/21 05/28/21 05/28/21 05/28/21 00:36 04:29 07:00 08:00 09:46 Temp 36.1 Pulse 68 Resp 11 B/P (MAP) 137/91 Pulse Ox 96 O2 Delivery Room Air O2 Flow Rate 2.00 Labs Labs Laboratory Tests 05/28/21 04:32 Exam Vital Signs Vital Signs Date Time Temp Pulse Resp B/P (MAP) Pulse Ox O2 Delivery O2 Flow Rate FiO2 05/28/21 09:46 36.1 05/28/21 08:00 Room Air 05/28/21 07:00 68 05/28/21 07:00 11 96 05/28/21 00:36 2.00 Physical Exam General: Alert. No acute distress. He is obese. Eye: No xanthelasma. HENT: Normocephalic. Neck: Jugular venous pressure does not appear elevated. Respiratory: Lungs are clear to auscultation. Respirations are non-labored. Breath sounds are equal. Symmetrical chest wall expansion. Cardiovascular: Normal rate. Regular rhythm. No murmur. No gallop. No edema. Gastrointestinal: Soft. Normal bowel sounds. Skin: Warm. Dry. Neurologic: Alert and oriented to person, place, time. Cranial nerves 3-11 grossly intact. Psychiatric: Cooperative. Appropriate mood & affect. Labs Laboratory Tests Test 05/27/21 10:33 05/27/21 15:58 05/28/21 04:32 Range/Units Glucometer 84 104 70-110 MG/DL White Blood Count 7.3 4.3-11.0 10^3/uL Red Blood Count 5.17 4.30-5.52 10^6/uL Hemoglobin 14.7 13.3-17.7 g/dL Hematocrit 44 40-54 % Mean Corpuscular Volume 85 80-99 fL Mean Corpuscular Hemoglobin 28 25-34 pg Mean Corpuscular Hemoglobin Concent 33 32-36 g/dL Red Cell Distribution Width 13.0 10.0-14.5 % Platelet Count 292 130-400 10^3/uL Mean Platelet Volume 9.1 9.0-12.2 fL Immature Granulocyte % (Auto) 0 % Neutrophils (%) (Auto) 55 42-75 % Lymphocytes (%) (Auto) 31 12-44 % Monocytes (%) (Auto) 12 0-12 % Eosinophils (%) (Auto) 2 0-10 % Basophils (%) (Auto) 1 0-10 % Neutrophils # (Auto) 4.0 1.8-7.8 10^3/uL Lymphocytes # (Auto) 2.2 1.0-4.0 10^3/uL Monocytes # (Auto) 0.9 0.0-1.0 10^3/uL Eosinophils # (Auto) 0.2 0.0-0.3 10^3/uL Basophils # (Auto) 0.1 0.0-0.1 10^3/uL Immature Granulocyte # (Auto) 0.0 0.0-0.1 10^3/uL Sodium Level 138 135-145 MMOL/L Potassium Level 3.8 3.6-5.0 MMOL/L Chloride Level 102 98-107 MMOL/L Carbon Dioxide Level 24 21-32 MMOL/L Anion Gap 12 5-14 MMOL/L Blood Urea Nitrogen 11 7-18 MG/DL Creatinine 0.87 0.60-1.30 MG/DL Estimat Glomerular Filtration Rate 101 BUN/Creatinine Ratio 13 Glucose Level 100 70-105 MG/DL Calcium Level 9.0 8.5-10.1 MG/DL Corrected Calcium 9.2 8.5-10.1 MG/DL Phosphorus Level 4.5 2.3-4.7 MG/DL Magnesium Level 2.1 1.6-2.4 MG/DL Total Bilirubin 0.7 0.1-1.0 MG/DL Aspartate Amino Transf (AST/SGOT) 14 5-34 U/L Alanine Aminotransferase (ALT/SGPT) 32 0-55 U/L Alkaline Phosphatase 46 40-136 U/L Total Protein 6.5 6.4-8.2 GM/DL Albumin 3.8 3.2-4.5 GM/DL Diagnosis/Problems Diagnosis/Problems (1) Cardiac arrest Status: Acute Assessment & Plan: Exact etiology unclear. There is no evidence of Patrick-Parki nson-White, Brugada syndrome, or prolonged or short QT on his resting electrocardiogram. There were not any reported significant bradycardia arrhythmias or tachyarrhythmias by the rescue squad. He did have mild bradycardia while he was sleeping. His nuclear stress test from earlier today was normal. He has a normal ejection fraction. There is no evidence of disruption of his thoracic aortic stent graft on his chest CT. This may have been brought on by an arrhythmia or alternatively, he could have had a seizure. When faced with these sorts of circumstances, sometimes we may not ever find the cause of the event. I did explain this to the patient and his . I did speak to an welding rod coater at an outside facility who suggested an implantable loop recorder and a cardiac MRI. I implanted a loop recorder this morning. He will need to be scheduled for a cardiac MRI at an outside facility after discharge. My office will make arrangements for the outpatient testing and neurology consultation. There is no indication for a defibrillator or LifeVest at this time. (2) Abnormal ECG Assessment & Plan: There is no evidence of a STEMI or any definitive ischemic changes on his electrocardiogram. He had nonspecific ST changes on his e lectrocardiogram. His stress test showed normal perfusion with a normal ejection fraction. As such, no additional cardiac testing is indicated for this mild abnormality at this point in time. (3) Sinus bradycardia Assessment & Plan: This occurred at night while he was sleeping. I suspect he may have sleep apnea. Sleep apnea could have also contributed to some of the symptoms that happened just before he collapsed. I recommend he be scheduled for a sleep study after discharge. (4) Troponin level elevated Assessment & Plan: His troponin level was elevated but this was in the setting of possible cardiac arrest as outlined above. If he did in fact have cardiac arrest, this most likely would have led to global myocardial ischemia resulting in a troponin leak consistent with a type II non-ST elevation myocardial infarction. As above, his nuclear stress test was normal suggesting that he has not had a focal myocardial infarction or significant coronary atherosclerosis. As such, at this time, I do not see any strong indication for cardiac catheterization. (5) Injury of thoracic aorta Assessment & Plan: His chest CT did not show any evidence of disruption to his previous thoracic aortic repair. (6) Primary hypertension Assessment & Plan: Blood pressures are improved now that his outpatient dose of lisinopril has been restarted. This will need to be monitored after discharge. (7) Obesity Assessment & Plan: He needs to work on weight loss. Obesity does also increase his risk of having sleep apnea. BENSON MCKEON JR, MD May 28, 2021 08:38
[2021-05-28] MEDS ORDERED: LIDOCAINE 1% INJ 20 ML 20 ML VIAL INJ ONE (09:00)
--- NOTE | 2021-05-28 09:18 | Cardiac Procedure Note ---
Cardiology Procedures Date of Procedure 05/28/2021 LOOP RECORDER INSERTION INDICATION: Syncope. PROCEDURE: After informed consent, the left pectoral area was prepped and draped in the usual sterile fashion. The skin and subcutaneous tissues at the 4th intercostal space in the midclavicular line were infiltrated with 2% lidocaine for local anesthesia. A edna was then made in the skin with the insertion kit. A [employer]onic LINQ 2 loop recorder, serial # [id number], was then inserted using the insertion tool. The device was checked for R wave amplitude which was acceptable. Dermabond was applied to the wound. A sterile dressing was applied. The patient tolerated the procedure well. IMPRESSION: 1. Status post loop recorder insertion with a [employer]onic LINQ 2 device (serial # [id number]). Certain portions of this document may have been dictated utilizing voice recognition technology. Inherent to this technology, typographical and grammatical errors may exist. As much as I am diligent to identify and correct these mistakes, some errors may remain in the document. BENSON MCKEON JR, MD May 28, 2021 09:18
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
--- NOTE | 2021-05-29 09:42 | Discharge Summary ---
Diagnosis/Chief Complaint Date of Admission May 26, 2021 at 04:05 Date of Discharge May 28, 2021 at 09:43 Discharge Date: May 28, 2021 Admission Diagnosis Cardiac arrest Primary Care KRISTEL Jauregui Discharge Diagnosis (1) Cardiac arrest Status: Acute Assessment & Plan: Exact etiology unclear. There is no evidence of [id number], Brugada syndrome, or prolonged or short QT on his resting electrocardiogram. There were not any reported significant bradycardia arrhythmias or tachyarrhythmias by the rescue squad. He did have mild bradycardia while he was sleeping. His nuclear stress test from earlier today was normal. He has a normal ejection fraction. There is no evidence of di sruption of his thoracic aortic stent graft on his chest CT. This may have been brought on by an arrhythmia or alternatively, he could have had a seizure. When faced with these sorts of circumstances, sometimes we may not ever find the cause of the event. I did explain this to the patient and his . I did speak to an dealer card room at an outside facility who suggested an implantable loop recorder and a cardiac MRI. I implanted a loop recorder this morning. He will need to be scheduled for a cardiac MRI at an outside facility after discharge. My office will make arrangements for the outpatient testing and neurology consultation. There is no indication for a defibrillator or LifeVest at this time. (2) Abnormal ECG Assessment & Plan: There is no evidence of a STEMI or any definitive ischemic changes on his electrocardiogram. He had nonspecific ST changes on his electrocardiogram. His stress test showed normal perfusion with a normal ejection fraction. As such, no additional cardiac testing is indicated for this mild abnormality at this point in time. (3) Sinus bradycardia Assessment & Plan: This occurred at night while he was sleeping. I suspect he may have sleep apnea. Sleep apnea could have also contributed to some of the symptoms that happened just before he collapsed. I recommend he be scheduled for a sleep study after discharge. (4) Troponin level elevated Assessment & Plan: His troponin level was elevated but this was in the setting of possible cardiac arrest as outlined above. If he did in fact have cardiac arrest, this most likely would have led to global myocardial ischemia resulting in a troponin leak consistent with a type II non-ST elevation myocardial infarction. As above, his nuclear stress test was normal suggesting that he has not had a focal myocardial infarction or significant coronary atherosclerosis. As such, at this time, I do not see any strong indication for cardiac catheterization. (5) Injury of thoracic aorta Assessment & Plan: His chest CT did not show any evidence of disruption to his previous thoracic aortic repair. (6) Primary hypertension Assessment & Plan: Blood pressures are improved now that his outpatient dose of lisinopril has been restarted. This will need to be monitored after discharge. (7) Obesity Assessment & Plan: He needs to work on weight loss. Obesity does also increase his risk of having sleep apnea. Discharge Summary Discharge Physical Exam Allergies: Coded Allergies: NKANo Known Allergies (Unverified Allergy, Mild, 12/30/08) Vitals & I&Os Vital Signs Date Time Temp Pulse Resp B/P (MAP) Pulse Ox O2 Delivery O2 Flow Rate FiO2 05/28/21 09:46 36.1 05/28/21 08:00 Room Air 05/28/21 07:00 68 05/28/21 07:00 11 96 05/28/21 00:36 2.00 General Appearance: No Apparent Distress, WD/WN Respiratory: Lungs Clear, No Respiratory Distress Cardiovascular: Regular Rate, Rhythm, No Murmur Neurologic/Psychiatric: Alert, Oriented x3 Hospital Course Pt was admitted to the hospital post cardiac arrest. He was admitted to the ICU and underwent extensive work-up. He had a negative CT head and brain MRI. Cardiology was consulted. Given history of aortic injury with grafting CTA of his chest was performed and showed intact graft. He underwent stress testing which was negative. He did have an elevated troponin which quickly trended down was thought to be due to compressions. He was monitored on telemetry and the only arrhythmia noted was sinus bradycardia overnight. Because of this a loop recorder was placed by Dr. Saenz. I called and spoke with Dr. Olson his cardiothoracic surgeon office and inform them of this hospital stay and facilitated close follow-up. Images were clouded to Dr. Parish's office. I also called and updated his primary care provider KRISTEL Jauregui. He will also need a sleep study as an outpatient which both he and Melisa were informed of. Discharged home with strict return precautions. Labs (last 24 hrs) Microbiology 05/26/21 MRSA Screen - Final, Complete MRSA not isolated Patient resulted labs reviewed. Imaging: Reviewed Imaging Report Discussion & Recommendations Discharge Planning: >30 minutes discharge planning Discharge Home Medications: Active Scripts Active Reported Aspirin EC (Aspirin) 325 Mg Tablet. 325 Mg PO Q8H PRN Nexium 24Hr (Esomeprazole Magnesium) 20 Mg Capsule.dr 20 Mg PO DAILY Paroxetine HCl 20 Mg Tablet 20 Mg PO HS Lisinopril 10 Mg Tablet 10 Mg PO DAILY Instructions to patient/family Please see electronic discharge instructions given to patient. Copy Copies To 1: Dr Barber Parish; MELISA METZGER KATELYN M MD May 29, 2021 09:41
== END 2021-05-28 09:43 | disposition home or self-care (01) | DRG 260 ==
LOC: EDUNIT# 01:31 → ER 01:32 → ICU 04:05
PROVIDERS: ADMIT Internal Medicine; ATTEND Internal Medicine
PROC: 0JH632Z Insertion of Monitoring Device into Chest Subcutaneous Tissue and Fascia, Percutaneous Approach (ICD-10-PCS; principal; 2021-05-28)
DX: I46.9 Cardiac arrest, cause unspecified (principal); I21.A1 Myocardial infarction type 2; I24.9 Acute ischemic heart disease, unspecified; I47.2 Ventricular tachycardia; D72.829 Elevated white blood cell count, unspecified; I10 Essential (primary) hypertension; R73.9 Hyperglycemia, unspecified; G47.30 Sleep apnea, unspecified; E66.9 Obesity, unspecified; Z68.34 Body mass index [BMI] 34.0-34.9, adult; Z79.82 Long term (current) use of aspirin; Z79.899 Other long term (current) drug therapy; Z95.5 Presence of coronary angioplasty implant and graft
CPT/HCPCS: 33285; 36415; 70450; 70553; 71045; 71275; 72125; 74174; 78452; 80048; 80053; 80061; 80306; 80320; 81000; 82805; 82947; 83735; 83874; 83880; 84100; 84484; 85007; 85025; 85027; 85610; 85730; 87081; 93005; 93017; 93041; 93306; 99291

== ENCOUNTER 2021-06-04 00:22 | Emergency (ER) | payer BC ==
[~2021-06-04] VITALS: Ht 175 cm; Wt 117.0 kg
[~2021-06-04 00:22] MED LIST changes: +ASPI325T32 PO; +ESOM20CA58 PO
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
[2021-06-04 00:41] LABS: BASOPHILS # (AUTO) 0.1 10^3/uL (0.0-0.1); BASOPHILS % (AUTO) 1 % (0-10); EOSINOPHILS # (AUTO) 0.1 10^3/uL (0.0-0.3); EOSINOPHILS % (AUTO) 1 % (0-10); HEMATOCRIT 49 % (40-54); HEMOGLOBIN 16.8 g/dL (13.3-17.7); LYMPHOCYTES # (AUTO) 3.1 10^3/uL (1.0-4.0); LYMPHOCYTES % (AUTO) 36 % (12-44); MEAN CORPUSCULAR HEMOGLOBIN 29 pg (25-34); MEAN CORPUSCULAR HGB CONC 34 g/dL (32-36); MEAN CORPUSCULAR VOLUME 84 fL (80-99); MEAN PLATELET VOLUME 8.7 fL (9.0-12.2); MONOCYTES # (AUTO) 1.3 10^3/uL (0.0-1.0); MONOCYTES % (AUTO) 15 % (0-12); NEUTROPHILS # (AUTO) 3.9 10^3/uL (1.8-7.8); NEUTROPHILS % (AUTO) 46 % (42-75); PLATELET COUNT 435 10^3/uL (130-400); WHITE BLOOD COUNT 8.4 10^3/uL (4.3-11.0)
[2021-06-04] MEDS ORDERED: ONDANSETRON 4 MG/2 ML (SDV) Z0FRAN ONE (00:44)
[2021-06-04] MEDS ORDERED: PANTOPRAZOLE 40 MG (PROTONIX) VIAL IV ONE (00:45)
[2021-06-04] MEDS ORDERED: ONDANSETRON 4 MG/2 ML (SDV) Z0FRAN IVP ONE (00:45)
[2021-06-04] MEDS ORDERED: ASPIRIN 81 MG CHEW (CHILDREN'S ASA) PO ONE (00:45)
[2021-06-04] MEDS ORDERED: NITROGLYCERIN 0.4 MG SL TABS BTL 25'S SL PRN (00:45)
[2021-06-04 00:52] LABS: ALBUMIN 4.8 GM/DL (3.2-4.5)
[2021-06-04 00:53] LABS: CHLORIDE 99 MMOL/L (98-107); POTASSIUM 4.3 MMOL/L (3.6-5.0); SODIUM 137 MMOL/L (135-145)
[2021-06-04 00:54] LABS: CALCIUM 9.4 MG/DL (8.5-10.1); PROTHROMBIN TIME PATIENT 13.1 SEC (12.2-14.7)
[2021-06-04 00:55] LABS: GLUCOSE 100 MG/DL (70-105); TOTAL PROTEIN 8.1 GM/DL (6.4-8.2)
[2021-06-04 00:56] LABS: CARBON DIOXIDE 22 MMOL/L (21-32)
[2021-06-04 00:57] LABS: BILIRUBIN,TOTAL 0.6 MG/DL (0.1-1.0)
[2021-06-04 00:58] LABS: ALKALINE PHOSPHATASE 63 U/L (40-136)
[2021-06-04 00:59] LABS: CREATININE SERUM 1.16 MG/DL (0.60-1.30); GFR ESTIMATED 73
[2021-06-04 01:00] LABS: BUN/CREATININE RATIO 9
[2021-06-04 01:01] LABS: ALANINE AMINOTRANSFERASE 55 U/L (0-55); MAGNESIUM 2.3 MG/DL (1.6-2.4)
[2021-06-04 01:02] LABS: LIPASE 35 U/L (8-78)
[2021-06-04 01:22] LABS: ABG BASE EXCESS -1.3 MMOL/L (-2.5-2.5); ABG OXYGEN SATURATION 96 % (94-100); ABG PCO2 32 MMHG (35-45); ABG PH 7.45 (7.37-7.43); ABG PO2 75 MMHG (79-93); ABG TCO2 23.1 MMOL/L (21.0-31.0); ALLENS TEST YES-POS; INSPIRED O2 ROOM AIR; PATIENT TEMP 37; VENTILATOR NO
[2021-06-04] MEDS ORDERED: FAMOTIDINE 20 MG (PEPCID) TABLET PO STA (01:23)
[2021-06-04] MEDS ORDERED: ANTACID SUSP 30 ML UDC (MYLANTA) PO ONE (01:30)
[2021-06-04] MEDS ORDERED: LIDOCAINE 2% VISCOUS 15 ML UDC PO ONE (01:30)
[2021-06-04] MEDS ORDERED: NS IV 1000 ML 1,000 ML IV SCH (01:30)
[2021-06-04] MEDS ORDERED: CATHETER FLUSH 10 ML SYR IV PRN (02:30)
[2021-06-04] MEDS ORDERED: NS 100 ML (IVPB) BAG IV ONE (02:30)
[2021-06-04] MEDS ORDERED: IOHEXOL 350 MG/ML 100 ML (OMNIPAQUE 350) VIAL IV ONE (02:30)
[2021-06-04] MEDS ORDERED: HOLD METFORMIN - RECEIVED CONTRAST 20 ML VIAL IV SCH (02:30)
[2021-06-04] MEDS ORDERED: SUCR1TAB36 PO (03:44)
[2021-06-04] MEDS ORDERED: PANT20TA18 PO (03:44)
[2021-06-04 03:53] VITALS: BP 141/83
--- NOTE | 2021-06-04 05:09 | Diagnostic Imaging Report ---
PROCEDURE: CT abdomen and pelvis with contrast. TECHNIQUE: Multiple contiguous axial images were obtained through the abdomen and pelvis after administration of intravenous contrast. Auto Exposure Controls were utilized during the CT exam to meet ALARA standards for radiation dose reduction. All CT scans use one or more of the following dose optimizing techniques: automated exposure control, MA and/or KvP adjustment based on patient size and exam type or iterative reconstruction. INDICATION: Right upper quadrant and epigastric pain COMPARISON: 05/26/2021 Low-density seen throughout the liver indicating steatosis. No gallbladder, pancreatic, adrenal gland or splenic abnormality is identified. Kidneys are unremarkable on the current examination. There is no evidence of free fluid in the abdomen or pelvis. No appendiceal inflammation is identified. Partially opacified urinary bladder is unremarkable. There is no organized fluid collection or focal inflammation. IMPRESSION: Hepatic steatosis without evidence of acute abdominal or pelvic abnormality. Dictated by: Dictated on workstation # [id number]
--- NOTE | 2021-06-04 05:42 | Diagnostic Imaging Report ---
INDICATION: Chest pain COMPARISON: 05/26/2021 Heart size and pulmonary vascularity are within normal limits. There is no evidence of pneumothorax or consolidation. Aortic stent graft is present and there has been placement of loop recorder in the left chest wall. IMPRESSION: No acute abnormality. Dictated by: Dictated on workstation # [id number]
== END 2021-06-04 03:50 | disposition home or self-care (01) ==
LOC: EDUNIT# 00:22 → ER 00:25
DX: K29.00 Acute gastritis without bleeding (principal); R42 Dizziness and giddiness; I10 Essential (primary) hypertension; E66.9 Obesity, unspecified; Z68.33 Body mass index [BMI] 33.0-33.9, adult; Z79.82 Long term (current) use of aspirin; Z79.899 Other long term (current) drug therapy
CPT/HCPCS: 36415; 71045; 74177; 80053; 82805; 83690; 83735; 83874; 83880; 84484; 85025; 85610; 85730; 86141; 93005; 93041

== ENCOUNTER 2021-06-04 09:01 | Outpatient (CLI) | payer BC ==
[~2021-06-04 09:01] MED LIST changes: +PANT20TA18 PO; +SUCR1TAB36 PO
== END 2021-06-04 09:20 ==
LOC: SLEEP 09:01
PROVIDERS: ATTEND Internal Medicine Cardiovascular Disease
DX: G47.33 Obstructive sleep apnea (adult) (pediatric) (principal); E66.09 Other obesity due to excess calories
CPT/HCPCS: G0399

== ENCOUNTER → 2021-07-03 | Outpatient (CLI) | payer BC | LOC: LABNPT 08:39 | PROVIDERS: ATTEND Nurse Practitioner Family | DX: Z01.89 Encounter for other specified special examinations (principal); Z20.822 Contact with and (suspected) exposure to COVID-19 | CPT/HCPCS: 87635 ==

== ENCOUNTER 2021-07-05 20:36 | Outpatient (CLI) | payer BC | END 2021-07-06 06:18 | disposition home or self-care (01) | LOC: SLEEP 20:36 | PROVIDERS: ATTEND Internal Medicine Cardiovascular Disease | DX: Z01.89 Encounter for other specified special examinations (principal); G47.30 Sleep apnea, unspecified; I49.9 Cardiac arrhythmia, unspecified; E66.09 Other obesity due to excess calories; I10 Essential (primary) hypertension; K21.9 Gastro-esophageal reflux disease without esophagitis; S25.00XA Unspecified injury of thoracic aorta, initial encounter | CPT/HCPCS: 95810 ==

== ENCOUNTER 2021-07-11 05:24 | Outpatient (RCR) | payer BC ==
[~2021-07-11] VITALS: Ht 175.3 cm; Wt 116.8 kg
[~2021-07-11 05:24] MED LIST changes: +ALPR0.254 PO; +PARO30TA3 PO
== END 2021-07-11 11:51 | disposition home or self-care (01) ==
LOC: PREOP 05:24
PROVIDERS: ATTEND Surgery
DX: Z01.812 Encounter for preprocedural laboratory examination (principal); K21.9 Gastro-esophageal reflux disease without esophagitis; Z20.822 Contact with and (suspected) exposure to COVID-19
CPT/HCPCS: 87635

== ENCOUNTER 2021-07-14 07:03 | Day surgery (SDC) | payer BC ==
[~2021-07-14] VITALS: Ht 175.3 cm; Wt 116.8 kg
[2021-07-14] MEDS ORDERED: LACTATED RINGERS 1,000 ML IV STA (07:08)
[2021-07-14] MEDS ORDERED: HURRICAINE EXT TUBE (BENZOCAINE) XX ONE (07:15)
[2021-07-14 07:54] VITALS: BP 139/82
--- NOTE | 2021-07-14 08:12 | Progress Note-Pre Operative ---
Pre-Operative Progress Note H&P Reviewed The H&P was reviewed, patient examined and no changes noted. Date Seen by Provider: Jul 14, 2021 Time Seen by Provider: 08:10 Date H&P Reviewed: Jul 14, 2021 Time H&P Reviewed: 08:09 Pre-Operative Diagnosis: GERD without esophagitis GENARO STAPLES DO Jul 14, 2021 08:12
[2021-07-14] MEDS ORDERED: MIDAZOLAM 2 MG/2 ML (VERSED) VIAL ONE (08:48)
[2021-07-14] MEDS ORDERED: proPOfol 200 MG/20 ML (DIPRIVAN) VIAL IV ONE (08:48)
[2021-07-14 09:00] VITALS: BP 126/71
--- NOTE | 2021-07-14 09:04 | Discharge Inst-Simple/Standard ---
Discharge Inst-Standard Patient Instructions/Follow Up Plan of Care/Instructions/FU: 2 weeks Di Activity as Tolerated: Yes Discharge Diet: Regular Diet GENARO STAPLES DO Jul 14, 2021 09:04
[2021-07-14 09:05] VITALS: BP 115/69
[2021-07-14 09:10] VITALS: BP 121/72
[2021-07-14 09:15] VITALS: BP 121/72
[2021-07-14 09:35] VITALS: BP 121/72
--- NOTE | 2021-07-14 09:38 | Anesthesia-General Post-Op ---
MAC Patient Condition Mental Status/LOC: Same as Preop Cardiovascular: Satisfactory Nausea/Vomiting: Absent Respiratory: Satisfactory Pain: Controlled Complications: Absent Post Op Complications Complications None Follow Up Care/Instructions Patient Instructions None needed. Anesthesiology Discharge Order Discharge Order Patient is doing well, no complaints, stable vital signs, no apparent adverse anesthesia problems. No complications reported per nursing. ANGELIQUE HOPPER CRNA Jul 14, 2021 09:38
--- NOTE | 2021-07-15 00:35 | OPERATIVE REPORT ---
DATE OF SERVICE: 07/14/2021 PREOPERATIVE DIAGNOSES: Epigastric abdominal pain and gastroesophageal reflux disease. POSTOPERATIVE DIAGNOSES: Gastritis, small hiatal hernia. PROCEDURE: EGD with biopsy. SURGEON: Genaro Sevilla DO ANESTHESIA: Per SITE RELIABILITY ENGINEER. ESTIMATED BLOOD LOSS: None. COMPLICATIONS: None. INDICATIONS: The patient is a 36-year-old male with GERD symptoms and some epigastric abdominal pain. He understands risks and benefits of procedure and wishes to proceed. Consent was signed in the chart. DESCRIPTION OF PROCEDURE: The patient was taken to the endoscopy suite, placed in left recumbent position. Timeout was performed. Scope was inserted in mouth, down the esophagus, stomach and into the duodenum without difficulty. There were no polyps, masses or ulcerations within the duodenum. No erythematous changes. Scope was slowly retracted back to stomach where some erythematous changes were present in the stomach and particularly in the distal portion. Biopsy of the antrum was obtained. Biopsy of the body was obtained. Scope was retroflexed noting a small hiatal hernia, no other pathology. Scope was returned to its normal position, slowly withdrawn to distal esophagus where biopsy of the GE junction was obtained. Scope was slowly retracted back until completely removed, noting no other pathology. The patient tolerated procedure well without any complications, taken to recovery room in stable condition. RECOMMENDATIONS: The patient will follow up in the office in 2 weeks to discuss pathology results. The patient will need to continue on Protonix and Carafate at this time. Further recommendations pending results of biopsies. CC: Lizzette Velazquez -- requested, unable to deliver. Job ID: [id number] DocumentID: [id number] Dictated Date: 07/14/2021 09:08:41 Medical Staff Services Coordinator Date: 07/14/2021 16:09:57 Dictated By: GENARO SEVILLA DO
== END 2021-07-14 09:35 | disposition home or self-care (01) ==
LOC: ENDO 07:03
PROVIDERS: ATTEND Surgery
DX: K21.00 Gastro-esophageal reflux disease with esophagitis, without bleeding (principal); K29.70 Gastritis, unspecified, without bleeding; K44.9 Diaphragmatic hernia without obstruction or gangrene; I10 Essential (primary) hypertension; E66.9 Obesity, unspecified; Z79.899 Other long term (current) drug therapy

== ENCOUNTER → 2021-11-13 | Outpatient (CLI) | payer BC ==
[~2021-11-13] VITALS: Ht 175 cm; Wt 114.0 kg
[2021-11-13] VITALS (9 sets, daily range): BP systolic 75–131; BP diastolic 43–85
[~2021-11-13] MED LIST changes: +CATHETER FLUSH 10 ML SYR IV PRN; +NS IV 1000 ML 1,000 ML IV ONE; +NS IV 1000 ML 1,000 ML ONE
--- NOTE | 2021-11-14 12:53 | Cardiac Procedure Note ---
Cardiology Procedures Date of Procedure 11/14/21 TILT TABLE TEST INDICATION: Syncope. PROCEDURE: After informed consent and in the fasting state, upright tilt table testing was performed. The patient was placed on the table in the supine position. Serial heart rate, blood pressure and telemetry was obtained. The resting heart rate was 59 bpm with a blood pressure of 131/85 mmHg. The patient was then brought to the 70 degree upright position. At approximately 12 minutes , the patient became lightheaded at which time his heart rate was 68 bpm and his blood pressure was 75/43 mmHg. He then had a syncopal spell. He was then brought to the supine position. He was kept in the supine position for an additional 10 minutes at which time he was completely back to normal. His final vital signs were heart rate of 67 bpm with a blood pressure of 128/74 mmHg. This is a positive upright tilt table test for vasovagal syncope. IMPRESSION: 1. Upright tilt table testing was positive for a vasovagal syncopal response. Certain portions of this document may have been dictated utilizing voice recognition technology. Inherent to this technology, typographical and grammatical errors may exist. As much as I am diligent to identify and correct these mistakes, some errors may remain in the document. BENSON MCKEON JR, MD Nov 14, 2021 12:53
== END ==
LOC: CARD 09:30
PROVIDERS: ATTEND Internal Medicine Cardiovascular Disease
DX: R55 Syncope and collapse (principal)
CPT/HCPCS: 93660

== ENCOUNTER 2022-06-18 01:42 | Emergency (ER) | payer BC ==
[~2022-06-18] VITALS: Ht 175 cm; Wt 122.0 kg
[~2022-06-18 01:42] MED LIST changes: -CATHETER FLUSH 10 ML SYR IV PRN; -NS IV 1000 ML 1,000 ML IV ONE; -NS IV 1000 ML 1,000 ML ONE
[2022-06-18] MEDS ORDERED: LACTATED RINGERS 1,000 ML IV ONE (02:00)
[2022-06-18 02:07] LABS: BASOPHILS % (AUTO) 0 % (0-10); EOSINOPHILS # (AUTO) 0.1 10^3/uL (0.0-0.3); EOSINOPHILS % (AUTO) 1 % (0-10); HEMATOCRIT 45 % (40-54); HEMOGLOBIN 15.4 g/dL (13.3-17.7); LYMPHOCYTES # (AUTO) 5.8 10^3/uL (1.0-4.0); LYMPHOCYTES % (AUTO) 72 % (12-44); MEAN CORPUSCULAR HEMOGLOBIN 29 pg (25-34); MEAN CORPUSCULAR HGB CONC 34 g/dL (32-36); MEAN CORPUSCULAR VOLUME 84 fL (80-99); MEAN PLATELET VOLUME 9.5 fL (9.0-12.2); MONOCYTES # (AUTO) 0.4 10^3/uL (0.0-1.0); MONOCYTES % (AUTO) 5 % (0-12); NEUTROPHILS # (AUTO) 1.7 10^3/uL (1.8-7.8); NEUTROPHILS % (AUTO) 21 % (42-75); PLATELET COUNT 422 10^3/uL (130-400)
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
[2022-06-18 02:16] LABS: ALBUMIN 4.1 GM/DL (3.2-4.5); CHLORIDE 104 MMOL/L (98-107); POTASSIUM 3.1 MMOL/L (3.6-5.0); SODIUM 141 MMOL/L (135-145)
[2022-06-18 02:17] LABS: CALCIUM 9.7 MG/DL (8.5-10.1)
[2022-06-18 02:18] LABS: GLUCOSE 179 MG/DL (70-105); TOTAL PROTEIN 6.9 GM/DL (6.4-8.2)
[2022-06-18 02:19] LABS: CARBON DIOXIDE 20 MMOL/L (21-32)
[2022-06-18 02:20] LABS: BILIRUBIN,TOTAL 0.5 MG/DL (0.1-1.0)
[2022-06-18 02:22] LABS: ALKALINE PHOSPHATASE 89 U/L (40-136); CREATININE SERUM 1.27 MG/DL (0.60-1.30); GFR ESTIMATED 76
[2022-06-18 02:23] LABS: BUN/CREATININE RATIO 13
[2022-06-18 02:25] LABS: ALANINE AMINOTRANSFERASE 51 U/L (0-55); MAGNESIUM 1.9 MG/DL (1.6-2.4)
[2022-06-18 03:49] LABS: BILIRUBIN,URINE NEGATIVE (NEGATIVE); CLARITY,URINE CLEAR; COLOR,URINE YELLOW; GLUCOSE, URINE (UA) TRACE (NEGATIVE); KETONES,URINE NEGATIVE (NEGATIVE); LEUKOCYTE ESTERASE ,URINE NEGATIVE (NEGATIVE); NITRITE,URINE NEGATIVE (NEGATIVE); PH,URINE 6.5 (5-9); PROTEIN,URINE NEGATIVE (NEGATIVE)
[2022-06-18 03:54] LABS: BACTERIA,URINE NEGATIVE /HPF
[2022-06-18] MEDS ORDERED: RX-HYOSCYAMINE 0.125 MG SL (LEVSIN) PPK#6 SL STA (04:29)
[2022-06-18] MEDS ORDERED: HYOSCYAMINE 0.125 MG (LEVSIN) TAB PO ONE (04:30)
[2022-06-18] MEDS ORDERED: HYOS-19 SL (04:36)
[2022-06-18 04:40] VITALS: BP 148/86
--- NOTE | 2022-06-18 07:46 | Diagnostic Imaging Report ---
INDICATION: weakness. TECHNIQUE: Single view chest 2:04 AM. CORRELATION STUDY: 06/04/2021 FINDINGS: Aortic stent graft in the expected location of the descending thoracic aorta. Heart size and mediastinal configuration generally stable and unremarkable. Loop recorder device over left mid chest. The lungs are clear with no consolidating infiltrate. There is no significant effusion or pneumothorax. IMPRESSION: 1. Negative for acute cardiopulmonary abnormality. Dictated by: Dictated on workstation # [id number]
[2022-06-19] MEDS ORDERED: HYOS-19 SL (13:52)
== END 2022-06-18 04:42 | disposition home or self-care (01) ==
LOC: EDUNIT# 01:42 → ER 01:43
DX: R55 Syncope and collapse (principal); R10.84 Generalized abdominal pain; R19.7 Diarrhea, unspecified; E66.9 Obesity, unspecified; Z68.39 Body mass index [BMI] 39.0-39.9, adult; Z87.19 Personal history of other diseases of the digestive system; Z20.822 Contact with and (suspected) exposure to COVID-19
CPT/HCPCS: 36415; 71045; 80053; 81000; 83735; 84484; 85025; 86141; 87636; 93041

== ENCOUNTER 2022-06-19 09:22 | Emergency (ER) | payer BC ==
[~2022-06-19] VITALS: Ht 175 cm; Wt 122.0 kg
[~2022-06-19 09:22] MED LIST changes: +HYOS-19 SL
[2022-06-19] MEDS ORDERED: HYOSCYAMINE 0.125 MG (LEVSIN) TAB SL ONE (10:15)
[2022-06-19 10:32] LABS: BASOPHILS # (AUTO) 0.1 10^3/uL (0.0-0.1); BASOPHILS % (AUTO) 1 % (0-10); EOSINOPHILS % (AUTO) 0 % (0-10); HEMATOCRIT 47 % (40-54); HEMOGLOBIN 16.2 g/dL (13.3-17.7); LYMPHOCYTES # (AUTO) 1.6 10^3/uL (1.0-4.0); LYMPHOCYTES % (AUTO) 16 % (12-44); MEAN CORPUSCULAR HEMOGLOBIN 28 pg (25-34); MEAN CORPUSCULAR HGB CONC 35 g/dL (32-36); MEAN CORPUSCULAR VOLUME 83 fL (80-99); MONOCYTES % (AUTO) 9 % (0-12); NEUTROPHILS # (AUTO) 7.6 10^3/uL (1.8-7.8); NEUTROPHILS % (AUTO) 74 % (42-75); PLATELET COUNT 362 10^3/uL (130-400); WHITE BLOOD COUNT 10.3 10^3/uL (4.3-11.0)
[2022-06-19 10:43] LABS: ALBUMIN 4.5 GM/DL (3.2-4.5)
[2022-06-19 10:44] LABS: INR 0.9 (0.8-1.4); POTASSIUM 3.9 MMOL/L (3.6-5.0); PROTHROMBIN TIME PATIENT 13.1 SEC (12.2-14.7)
[2022-06-19 10:45] LABS: CALCIUM 9.5 MG/DL (8.5-10.1)
[2022-06-19 10:46] LABS: TOTAL PROTEIN 7.4 GM/DL (6.4-8.2)
[2022-06-19 10:50] LABS: CREATININE SERUM 0.99 MG/DL (0.60-1.30)
[2022-06-19 11:03] LABS: BILIRUBIN,URINE 1+ (NEGATIVE); CLARITY,URINE CLEAR; COLOR,URINE YELLOW; GLUCOSE, URINE (UA) NEGATIVE (NEGATIVE); KETONES,URINE TRACE (NEGATIVE); LEUKOCYTE ESTERASE ,URINE NEGATIVE (NEGATIVE); NITRITE,URINE NEGATIVE (NEGATIVE); PROTEIN,URINE 2+ (NEGATIVE)
[2022-06-19 11:10] LABS: WBC,URINE 0-2 /HPF
[2022-06-19 11:11] LABS: AMORPHOUS SEDIMENT,UR LARGE AMOR URATES /LPF; BACTERIA,URINE TRACE /HPF; SQUAMOUS EPITHELIAL CELL,UR 0-2 /HPF
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
[2022-06-19 13:40] VITALS: BP 135/87
[2022-06-19] MEDS ORDERED: HYOS-19 SL (13:52)
== END 2022-06-19 13:40 | disposition home or self-care (01) ==
LOC: EDUNIT# 09:22 → ER 09:24
DX: K92.1 Melena (principal); Z87.19 Personal history of other diseases of the digestive system
CPT/HCPCS: 36415; 80053; 81000; 82274; 83735; 85025; 85610; 85730; 86141; 87015; 87045; 87046; 87899; 89055; 99283